=== PATIENT | female | born 1980 | race Caucasian/White ===

== ENCOUNTER 2025-06-08 09:51 | Emergency (ER) | payer MEDICAID, SELFPAY ==
[2025-06-08 10:08] VITALS: BP 107/76; PULSE 78; RESP 16; TEMP 36.7; O2SAT 96
--- NOTE | 2025-06-08 10:23 | XR_ITS ---
Examination: PA lateral chest 2 views Technique: Upright PA lateral chest 2 views Date and time: June 08, 2025, 1027 hrs. Indications: Shortness of breath today. Findings: Reduced inspiratory effort Normal heart size. Mild elevation right hemidiaphragm. The lungs are clear. The osseous structures are intact Impression: Poor inspiratory effort chest x-ray. No active disease.
--- NOTE | 2025-06-08 10:23 | EKG_ITS ---
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
--- NOTE | 2025-06-08 10:26 | XR_ITS ---
Examination: Duplex scan of the lower extremity, unilateral right complete Date and time of exam: June 08, 2025, 11:03 AM Indications: Patient fell 05/27/2025 with injury to the right leg, persistent right leg pain Technique: Duplex scan of the extremity veins using B-mode/grayscale imaging and Doppler spectral analysis and color flow Attention is directed to internal echogenicity, compression and augmentation involving these veins, color flow assessment, spectral analysis Findings: Major deep venous structures in the extremity demonstrate normal course and caliber. There is no evidence of deep vein thrombosis. Normal color flow and spectral analysis Impression: Negative for DVT..
--- NOTE | 2025-06-08 10:33 | PD.EDRME ---
Rapid Medical Screening Exam E Arrival date/time: 06/08/25 09:51 This is a 44-year-old female that comes into the emergency room with complaints of shortness of breath and chest pressure. Patient states that she fell down the stairs a couple days ago and scraped both of her knees. Patient states that since then they have been hurting but she noticed today that her right leg is swelling more than the left and she has a lot of pain around the calf area. Patient is also complaining of shortness of breath. Patient has a history of diabetes, depression. I have greeted and performed a focused initial assessment of this patient. Initial appropriate labs ordered at this time. A comprehensive ED assessment and evaluation of the patient and analysis of all test and completion of medical decision making process will be conducted by additional ED provider. Chief Complaint: Shortness of Breath/Dyspnea Time Seen by Provider: 06/08/25 10:00 Vital signs: Vital Signs Temperature 98.1 F 06/08/25 10:08 Pulse Rate 78 06/08/25 10:08 Respiratory Rate 16 06/08/25 10:08 Blood Pressure 107/76 06/08/25 10:08 Pulse Oximetry (%) 96 06/08/25 10:08 Oxygen Delivery Method Room Air 06/08/25 10:08
--- NOTE | 2025-06-08 11:07 | PD.EDADULT ---
ED General RME/HPI General Chief complaint: Shortness of Breath/Dyspnea Stated complaint: SOB, SWOLLEN R) CALF, PAIN R) KNEE Time Seen by Provider: 06/08/25 10:00 Source: patient Arrival date/time: 06/08/25 09:51 CC: Right lower extremity pain and swelling, chest pain shortness of breath secondary to chest pain and leg pain HPI onset after a fall on May 27, 2025, leg pain started 24 hours ago. Patient was referred to the emergency room via PCP at a walk-in clinic for migel. Patient denies loss of consciousness or altered level of consciousness. Patient takes Kinsman for chronic back pain with some relief of the right lower leg pain. Patient is awake alert oriented nontoxic-appearing not in any acute distress. RME / HPI RME / HPI narrative: 06/08/25 09:51 This is a 44-year-old female that comes into the emergency room with complaints of shortness of breath and chest pressure. Patient states that she fell down the stairs a couple days ago and scraped both of her knees. Patient states that since then they have been hurting but she noticed today that her right leg is swelling more than the left and she has a lot of pain around the calf area. Patient is also complaining of shortness of breath. Patient has a history of diabetes, depression. I have greeted and performed a focused initial assessment of this patient. Initial appropriate labs ordered at this time. A comprehensive ED assessment and evaluation of the patient and analysis of all test and completion of medical decision making process will be conducted by additional ED provider. Related Data Home Medications ?Medication ?Instructions ?Recorded ?Confirmed sitagliptin phosphate 100 mg 100 mg PO QDAY #0 tabs 07/10/17 04/13/18 tablet (Januvia) metformin 1,000 mg tablet 1,000 mg PO BID 04/12/18 04/13/18 insulin glargine 100 unit/mL (3 35 unit subcut QDAY 04/13/18 04/13/18 mL) subcutaneous pen (Basaglar KwikPen U-100 Insulin) loratadine 10 mg tablet 10 mg PO QDAY 04/13/18 04/13/18 montelukast 10 mg tablet 10 mg PO QPM 04/13/18 04/13/18 (Singulair) olanzapine 7.5 mg tablet 7.5 mg PO QDAY 04/13/18 04/13/18 omeprazole 20 mg capsule,delayed 20 mg PO QDAY 04/13/18 04/13/18 release paroxetine HCl 40 mg tablet 40 mg PO QDAY 04/13/18 04/13/18 ranitidine HCl 150 mg tablet 150 mg PO QPM 04/13/18 04/13/18 Previous Rx's ?Medication ?Instructions ?Recorded ibuprofen 600 mg tablet 600 mg PO Q6HR PRN PAIN #20 tabs 05/21/17 acetaminophen 300 mg-codeine 30 mg 1 tab PO Q6H PRN pain #30 tabs 04/13/18 tablet benzonatate 100 mg capsule 100 mg PO TID PRN cough #20 caps 09/06/23 Allergies Allergy/AdvReac Type Severity Reaction Status Date / Time sertraline (From Zoloft) Allergy Hallucinati Verified 06/08/25 09:55 ng tuna oil Allergy Vomiting Verified 06/08/25 09:55 Review of Systems Review of Systems Narrative Review of Systems: GEN: No fever, no chills, no weight loss EYES: No discharge, no visual changes, no pain HEENT: No ear pain, no congestion, no sore throat PULM: No shortness of breath, no cough, no congestion CV: No chest pain, no dyspnea on exertion, no palpitations GI: No nausea, no vomiting, no diarrhea, no pain, no constipation : No frequency, no urgency, no dysuria MUSC/SKEL: + joint pain, no back pain SKIN: No rash PSYCH: No hallucinations, no depression HEME/LYMPH: No easy bleeding or bruising tendencies NEURO: No weakness, no headache Past Medical History Past Medical History NEUROLOGIC: Negative Neurological Disorders or Seizures CARDIAC: Positive Cardiac Disorders and Hypercholesterolemia (LAST USE 2015); Negative Congestive Heart Failure RESPIRATORY: Positive Asthma (SEASONAL LAST USE OF INHALER 02/25); Negative Chronic Obstructive Pulmonary Disease (COPD) (ASTMA HAS INHALER LAST USE 02/25) GASTROINTESTINAL: Positive Gastrointestinal Disorders and Gall Bladder Disease (LAP) GENITOURINARY: Negative Genitourinary Disorders or Renal Disease MUSCULOSKELETAL: Negative Musculoskeletal Disorders ENDOCRINE: Positive Endocrine Disorders and Diabetes Mellitus Type 2 (TAKES PO MED AND INSULIN); Negative Diabetes Mellitus Type 1 HEMATOLOGIC: Negative Blood Disorders PSYCHO/SOCIAL: Positive Depression and Anxiety OTHER HISTORY: Positive Chicken Pox; Negative Autoimmune Disease, Blood Transfusions, Blood Transfusion Reaction or Anesthesia Reactions Family History FAMILY HISTORY: Positive Family Psychiatric Problems (MOTHER) and Family Surgery (MOTHER,FATHER) Social History SMOKING STATUS: Never smoker ED Exam Narrative Physical exam: [General: Morbidly obese not in any acute distress Head normocephalic HEENT: Within acceptable limits Neck is supple nontender Chest equal chest rise nontender to palpation Respiratory: Clear to auscultation no wheezes crackles or rubs CV: Rate rhythm is regular no murmurs rubs or clicks Abdomen is grossly distended secondary to body habitus soft nontender no masses positive bowel sounds all 4 quadrants Back: No CVA tenderness no spinous process tenderness from cervical spine thoracic and lumbar spine Skin: Partial-thickness abrasions to the skin overlying both patellas that are in final stages of healing. No ecchymosis, otherwise skin is intact no petechiae rash induration ulceration or crepitus Extremities: Decreased range of motion of the right knee secondary to pain. No significant edema erythema exudate streaking. Moving all other extremities against resistance cap refill less than 2 seconds neurosensory intact Neuro: Awake alert oriented x3 Glascow coma 15 no focal deficits] Course Quality Measures none Orders Category Date Time Status EKG (ED ONLY) *Do not use* NOW Care 06/08/25 10:24 Completed EKG (ED Only) Stat Exams 06/08/25 10:23 Draft US venous doppler LE RT Stat Exams 06/08/25 10:26 Taken XR chest 2V Stat Exams 06/08/25 10:23 Completed XR knee RT 3V Stat Exams 06/08/25 11:23 Taken BNP [B-Type Natriuretic Peptide] Stat Lab 06/08/25 10:38 Completed CBC Stat Lab 06/08/25 10:38 Completed Comprehensive Metabolic Panel Stat Lab 06/08/25 10:38 Completed PT [Prothrombin Time with INR] Stat Lab 06/08/25 10:38 Completed Troponin I Stat Lab 06/08/25 10:38 Completed Vital Signs Vital signs: Vital Signs Temperature 98.1 F 06/08/25 10:08 Pulse Rate 78 06/08/25 10:08 Respiratory Rate 16 06/08/25 10:08 Blood Pressure 107/76 06/08/25 10:08 Pulse Oximetry (%) 96 06/08/25 10:08 Oxygen Delivery Method Room Air 09/28/25 10:08 Discharge Plan Plan Patient Disposition: HOME (Self Care) Patient condition on transfer: Stable Prescriptions/Referrals Prescriptions/Med Rec: No Action ibuprofen 600 MG tablet 600 mg PO Q6HR PRN (Reason: PAIN) Qty: 20 0RF sitagliptin phosphate [Januvia] 100 MG tablet 100 mg PO QDAY Qty: 0 metformin 1,000 mg Tablet 1,000 mg PO BID ranitidine HCl 150 mg Tablet 150 mg PO QPM montelukast [Singulair] 10 mg Tablet 10 mg PO QPM paroxetine HCl 40 mg Tablet 40 mg PO QDAY omeprazole 20 mg Capsule,Delayed Release(Dr/Ec) 20 mg PO QDAY loratadine 10 mg Tablet 10 mg PO QDAY insulin glargine [Basaglar KwikPen U-100 Insulin] 100 unit/mL (3 mL) Insulin Pen 35 unit SUB-Q QDAY olanzapine 7.5 mg Tablet 7.5 mg PO QDAY acetaminophen-codeine 300-30 mg tablet 1 tab PO Q6H PRN (Reason: pain) Qty: 30 0RF benzonatate 100 mg capsule 100 mg PO TID PRN (Reason: cough) Qty: 20 0RF Referrals: Paulina Guevara FNP [Primary Care Provider] - In 1 week Problem List Clinical Impression: Contusion of knee Patient/Caregiver Discharge Instructions Education Materials: Bone Contusion Additional Instructions: Continue to take your regular medications follow-up with your primary care doctor as a worsening of symptoms feel free to return the emergency room for reevaluation. Print Language: Bulgarian Stand Alone Forms: Sofia Award Info., Patient Portal Info Letter PA/TURRET LATHE OPERATOR Supervising Physician FLAQUITO/TURRET LATHE OPERATOR Supervising Physician: Ronnie Alcantar ENP [facility] Clinical Information Provided by: patient Medical Records reviewed [facility] Chronic Illness/Social Conditions which may negatively complicate care or outcome(s)-explain: None or not applicable EKG Interpretation EKG #1: EKG Interpretation: EKG performed at 1041 shows a ventricular rate of 78 UT interval 154 QRS of 96 QTc of 403 this is normal sinus rhythm. No old EKG for comparison Labs Labs: interpreted by fl Lab(s) Interpretation(s): CBC shows no acute leukocytosis anemia thrombocytopenia CMP shows no significant electrolyte imbalances other than a glucose of 152 no renal impairment transaminitis or T. bili elevation Troponin is undetectable BMP within acceptable limits Imaging Imaging interpretation: interpreted by me Imaging Interpretation(s): Chest x-rays interpreted by radiology shows no acute finding. Doppler of the right leg is negative for DVT. Knee x-ray shows no acute fracture malalignment or dislocation. Medication Administration(s) none Diagnosis Differential Diagnosis ED Complaint MDM: DVT knee fracture knee contusion Diagnoses ruled out and/or further discussions: Knee contusion
[2025-06-08 11:15] LABS: Basophils # (Auto) 0.1 Thou/mm3 (0.0-0.2); Basophils % (Auto) 1 % (0-2.5); Eosinophils # (Auto) 0.4 Thou/mm3 (0.0-0.5); Eosinophils % (Auto) 5 % (0-10); Hematocrit 41.2 % (36.0-46.0); Hemoglobin 13.4 g/dL (12.0-16.0); Immature Granulocytes Auto 0.13 Thou/mm3 (0.00-0.00); Lymphocytes # (Auto) 2.9 Thou/mm3 (1.0-4.8); Lymphocytes % (Auto) 32 % (10-50); Mean Corpuscular HGB Conc 32.5 g/dl (31.0-37.0); Mean Corpuscular Hemoglobin 28.5 pg (25.0-35.0); Mean Corpuscular Volume 88 fL (80-100); Monocytes # (Auto) 0.8 Thou/mm3 (0.0-0.8); Monocytes % (Auto) 9 % (0-12); Neutrophils # (Auto) 4.6 Thou/mm3 (1.8-7.7); Neutrophils % (Auto) 52 % (37-80); Nucleated Red Blood Cell # 0.00 Thou/mm3 (0.00-0.00); Nucleated Red Blood Cell % 0 /100 WBC (0); Platelet Count 294 Thou/mm3 (140-440); RDW Standard Deviation 43.5 fL (36.4-46.3); Red Blood Count 4.71 Miln/mm3 (4.00-5.20); White Blood Count 8.9 Thou/mm3 (3.6-11.0)
[2025-06-08 11:21] LABS: B-Type Natriuretic Peptide < 20 pg/mL (0-100)
[2025-06-08 11:23] LABS: Alanine Aminotransferase 62 U/L (10-49); Albumin, Serum 4.5 gm/dL (3.5-5.0); Albumin/Globulin Ratio 1.9 (1.2-2.2); Alkaline Phosphatase 53 U/L (46-116); Anion Gap 9 (7-16); Aspartate Amino Transferase 27 U/L (0-34); BUN/Creatinine Ratio 10 Ratio (12-20); Bilirubin,Total 0.3 mg/dL (0.3-1.2); Blood Urea Nitrogen 9 mg/dL (9-23); Calcium 10.0 mg/dL (8.3-10.6); Calcium (Corrected) 10.0 mg/dL (8.5-10.1); Carbon Dioxide 25.0 mMol/L (20.0-31.0); Chloride 107 mMol/L (98-107); Creatinine (Component) 0.9 mg/dL (0.6-1.3); Estimated Creatinine Clearance 107.0 mL/min (>60); Globulin 2.4 gm/dL (2.3-3.5); Glucose 152 mg/dL (74-106); Osmolality,Calculated 282 (275-295); Potassium 4.2 mMol/L (3.4-5.1); Sodium 141 mMol/L (136-145); Total Protein 6.9 gm/dL (5.7-8.2); Troponin I < 0.002 ng/mL (0.0-0.045); eGFR > 60 See Note
--- NOTE | 2025-06-08 11:23 | XR_ITS ---
Examination: Knee, right , 3 views Technique: Knee AP, lateral, oblique 3 views Date and time of exam: June 08, 2025, 1125 hrs. Indications: Patient fell 12 days ago with injury to the knee, knee pain Findings: No fracture or dislocation. No foreign body Impression: No fracture or dislocation
[2025-06-08 12:06] LABS: INR 0.9 (0.9-1.3); Prothrombin Time 10.0 Seconds (9.0-12.2)
[2025-06-08 12:07] VITALS: BP 113/71; PULSE 84; RESP 18; TEMP 36.8; O2SAT 96
[2025-06-08 12:19] VITALS: BP 113/71; PULSE 75; RESP 16; TEMP 36.8; O2SAT 99
== END 2025-06-08 12:19 | disposition home or self-care (01) ==
PROVIDERS: Nurse Practitioner Family; Emergency Provider Emergency Medicine; PCP Registered Nurse Community Health
DX: S80.01XA Contusion of right knee, initial encounter (principal); R94.31 Abnormal electrocardiogram [ECG] [EKG]; R06.02 Shortness of breath; W10.9XXA Fall (on) (from) unspecified stairs and steps, initial encounter; E78.00 Pure hypercholesterolemia, unspecified
CPT/HCPCS: 36415; 71046; 73562; 80053; 83880; 84484; 85025; 85610; 93005; 93971; 99284